=== PATIENT | female | born 1990 | race Caucasian/White ===

== ENCOUNTER 2016-10-07 19:23 | Emergency (ER) | payer OTHER ==
[2016-10-07 19:35] VITALS: BP 113/69; PULSE 70; RESP 16; TEMP 98.2; O2SAT 100
--- NOTE | 2016-10-07 20:32 | ED PDOC ---
HPI: Skin/Bite Injury Time Seen by Provider: 10/07/16 19:49 Chief Complaint (Nursing): Abnormal Skin Integrity Chief Complaint (Provider): Left arm wound evaluation History Per: Patient History/Exam Limitations: no limitations Onset/Duration Of Symptoms: Days Quality Of Symptoms: Itching Severity: Mild Additional Complaint(s): Pt states she cut herself 1 week ago. Pt states that noticed yellow drainage and some surrounding redness the last 2-3 days. No fever.chills. Past Medical History Reviewed: Historical Data, Nursing Documentation, Vital Signs Vital Signs: Last Vital Signs Temp 98.2 F 10/07/16 19:31 Pulse 70 10/07/16 19:31 Resp 16 10/07/16 19:31 BP 113/69 10/07/16 19:31 Pulse Ox 100 10/07/16 19:31 - Medical History PMH: No Chronic Diseases - Surgical History Surgical History: No Surg Hx - Family History Family History: States: No Known Family Hx - Living Arrangements Living Arrangements: With Family - Social History Current smoker - smoking cessation education provided: No Alcohol: Occasional Drugs: Denies - Home Medications Home Medications: Ambulatory Orders Medication Instructions Recorded Cephalexin [Keflex] 500 mg PO BID #20 capsule 10/07/16 - Allergies Allergies/Adverse Reactions: Allergies Allergy/AdvReac Type Severity Reaction Status Date / Time No Known Allergies Allergy Verified 10/07/16 19:31 Review of Systems ROS Statement: Except As Marked, All Systems Reviewed And Found Negative Physical Exam - Reviewed Nursing Documentation Reviewed: Yes Vital Signs Reviewed: Yes - Physical Exam Appears: Positive for: Well, Non-toxic, No Acute Distress Head Exam: Positive for: ATRAUMATIC, NORMAL INSPECTION, NORMOCEPHALIC Skin: Negative for: Normal Color ((+) 4 cm laceration, healing with localized erythema, no drainage ) Eye Exam: Positive for: Normal appearance ENT: Positive for: Normal ENT Inspection Neck: Positive for: Normal, Painless ROM Respiratory: Negative for: Accessory Muscle Use, Respiratory Distress Neurologic/Psych: Positive for: Alert, Oriented - ECG O2 Sat by Pulse Oximetry: 100 Disposition - Clinical Impression Clinical Impression: Infected wound - Patient ED Disposition Is Patient to be Admitted: No Counseled Patient/Family Regarding: Diagnosis, Need For Followup, Rx Given - Disposition Disposition: Routine/Home Disposition Time: 20:08 Condition: GOOD Prescriptions: Cephalexin [Keflex] 500 mg PO BID #20 capsule Instructions: Wound Infection (ED) Forms: [employer] (Somali)
== END 2016-10-07 21:05 | disposition home or self-care (01) ==
LOC: H.ER 19:23
DX: S41.112A Laceration without foreign body of left upper arm, initial encounter (principal); L08.9 Local infection of the skin and subcutaneous tissue, unspecified; W45.8XXA Other foreign body or object entering through skin, initial encounter

== ENCOUNTER 2017-11-03 16:31 | Emergency (ER) | payer OTHER ==
--- NOTE | 2017-11-03 17:28 | ED PDOC ---
HPI: Abdomen <Minda Brand - Last Filed: 11/03/17 19:13> History Per: Patient History/Exam Limitations: no limitations Onset/Duration Of Symptoms: Days, Intermittent Episodes Severity: Moderate Pain Scale Rating Of: 7 Location Of Pain/Discomfort: LLQ Quality Of Discomfort: Aching, Cramping Associated Symptoms: Fever, Nausea, Vomiting. denies: Diarrhea, Constipation Alleviating Factors: None Last Bowel Movement: Today <Blossom Cueto - Last Filed: 11/03/17 19:22> Time Seen by Provider: 11/03/17 17:08 Chief Complaint (Nursing): Abdominal Pain Additional Complaint(s): CC: nausea, vomiting and abd pain HPI: 27 YO female with hx of chlamydia infection 1yr ago (s/p tx) presents to [facility] ED for generalized malaise, n/v and vague abdominal pain. Pt states that her symptoms started last weekend with nausea and multiple episode of emesis, subsequently pt had subjective fevers on off/ had days where she felt mild relief but felt worse on other days. Pain is located in the LLQ, episodic and cramping in nature. Symptoms persisted which lead her to go to an urgent care today, pt was told that she should come to the ER for u/s. Last emesis was before coming to the ED, yellow and food content. Last BM this AM, normal. LMP was 1 week ago. PMD: none PMHx: chlamydia infection SurgHx: lap appy SHx: social ETOH use, denies smoking and illicit drug use FHx: denies Allergies: NKDA Meds: OCPs (Blossom Cueto) Past Medical History <Minda Brand - Last Filed: 11/03/17 19:13> - Medical History PMH: No Chronic Diseases - Surgical History Surgical History: Appendectomy - Family History Family History: States: No Known Family Hx <Blossom Cueto - Last Filed: 11/03/17 19:22> Vital Signs: Last Vital Signs Temp 98.7 F 11/03/17 16:53 Pulse 84 11/03/17 16:53 Resp 18 11/03/17 16:53 BP 113/76 11/03/17 16:53 Pulse Ox 98 11/03/17 17:47 - Home Medications Home Medications: Ambulatory Orders Medication Instructions Recorded Cephalexin [Keflex] 500 mg PO BID #20 capsule 10/07/16 - Allergies Allergies/Adverse Reactions: Allergies Allergy/AdvReac Type Severity Reaction Status Date / Time No Known Allergies Allergy Verified 11/03/17 16:53 Review of Systems Constitutional: Positive for: Fever. Negative for: Chills Cardiovascular: Negative for: Chest Pain, Palpitations Respiratory: Negative for: Cough, Shortness of Breath Gastrointestinal: Positive for: Nausea, Vomiting, Abdominal Pain. Negative for : Diarrhea, Constipation Genitourinary Female: Positive for: Dysuria (last week, none today ). Negative for: Hematuria Skin: Negative for: Rash Neurological: Negative for: Weakness <Blossom Cueto - Last Filed: 11/03/17 19:22> Physical Exam - Physical Exam Appears: Positive for: No Acute Distress Skin: Positive for: Normal Color Cardiovascular/Chest: Positive for: Regular Rate, Rhythm. Negative for: Murmur Respiratory: Positive for: Normal Breath Sounds. Negative for: Crackles, Wheezing Gastrointestinal/Abdominal: Positive for: Soft, Tenderness (to palpation of the LLQ). Negative for: Distended, Guarding, Rebound Back: Positive for: Normal Inspection. Negative for: L CVA Tenderness, R CVA Tenderness Extremity: Positive for: Normal ROM. Negative for: Tenderness, Pedal Edema Neurologic/Psych: Positive for: Alert, Oriented <Blossom Cueto - Last Filed: 11/03/17 19:22> - Laboratory Results Result Diagrams: 11/03/17 18:23 11/03/17 18:23 <Minda Brand - Last Filed: 11/03/17 19:13> - Laboratory Results Result Diagrams: 11/03/17 18:23 11/03/17 18:23 - ECG O2 Sat by Pulse Oximetry: 98 <RomBlossom - Last Filed: 11/03/17 19:22> - Progress ED Course And Treament: 27 YO female with LLQ pain and CMT pos. Torsion vs PID vs ovarian cyst -cbc, cmp -Pelvis U/s -GC/C cx and urine test -UA and udip -upreg -IVF -Toradol 19:10--pt seen and evaluated, states that she feels little better now Blood work reviewed with pt, sig for leukocytosis and UA neg GC/C cultures sent, pending Will tx pt for PID with abx, Rocephin and 1x PO dose of doxy Pt endorsed to Dr. Franklin (Blossom Cueto) Medical Decision Making <Minda Brand - Last Filed: 11/03/17 19:13> <Blossom Cueto - Last Filed: 11/03/17 19:22> Medical Decision Making: A&P: Vaginal discomfort Workup done with resident. On re-evaluation, labs reveal leukocytosis. Patient with severe pain on pelvic exam with CMT and left adnexal tenderness. Patient to be given IV Doxycycline and IM Rocephin to cover PID. Patient pending pelvic US to r/o Torsion vs. cyst. 1899 Patient signed out to Dr. Franklin pending US and reassessment. Scribe Attestation: Documented by Emily Nj, acting as a scribe for Minda Brand MD Provider Scribe Attestation: All medical record entries made by the Scribe were at my direction and personally dictated by me. I have reviewed the chart and agree that the record accurately reflects my personal performance of the history, physical exam, medical decision making, and the department course for this patient. I have also personally directed, reviewed, and agree with the discharge instructions and disposition. (Minda Brand) Disposition - Patient ED Disposition Is Patient to be Admitted: Transfer of Care - Disposition Disposition: Transfer of Care Disposition Time: 19:00 <Minda Brand - Last Filed: 11/03/17 19:13> <Blossom Cueto - Last Filed: 11/03/17 19:22> - Clinical Impression Clinical Impression: Abdominal pain - Disposition Condition: STABLE Forms: [employer] (Serbian)
[2017-11-03] MEDS ORDERED: Sodium Chloride 0.9% 1,000 ML IV STA (17:43)
[2017-11-03 18:12] LABS: SQUAMOUS EPITHIAL 1 /hpf (0-5); URINE BACTERIA RARE (<OCC); URINE BILIRUBIN NEGATIVE (NEGATIVE); URINE BLOOD NEGATIVE (NEGATIVE); URINE CLARITY CLEAR (Clear); URINE COLOR YELLOW (YELLOW); URINE GLUCOSE (UA) NEG (Normal); URINE LEUKOCYTE ESTERASE NEG Leu/uL (Negative); URINE PROTEIN NEGATIVE (NEGATIVE); URINE UROBILINOGEN 0.2-1.0 mg/dL (0.2-1.0)
[2017-11-03 18:26] LABS: BASO % 0.2 % (0.0-2.0); EOS % 0.1 % (0.0-4.0); HEMOGLOBIN 13.4 g/dL (12.0-16.0); LYMPH # 1.2 K/uL (1.0-4.3); LYMPH % 9.3 % (20.0-40.0); MEAN CELL VOLUME 87.9 fl (81.0-99.0); MEAN CORPUSCULAR HGB CONC 34.1 g/dL (33.0-37.0); MEAN PLATELET VOLUME 7.4 fl (7.2-11.7); MONO # 0.7 K/uL (0.0-0.8); MONO % 5.2 % (0.0-10.0); NEUT # 10.7 K/uL (1.8-7.0); NEUT % 85.2 % (50.0-75.0); PLATELET COUNT 285 K/uL (130-400); RBC 4.45 Mil/uL (3.80-5.20); RED CELL DISTRIBUTION WIDTH 12.2 % (11.5-14.5); WHITE BLOOD COUNT 12.6 K/uL (4.8-10.8)
[2017-11-03 18:35] LABS: BLOOD UREA NITROGEN 7 mg/dl (7-17); CALCIUM 9.3 mg/dL (8.4-10.2); GFR NON-AFRICAN AMERICAN > 60
[2017-11-03] MEDS ORDERED: cefTRIAXone (Rocephin) 250 mg Inj IM ONE (19:17)
--- NOTE | 2017-11-03 19:37 | ED PDOC ---
- Laboratory Results Result Diagrams: 11/03/17 18:23 11/03/17 18:23 - ECG O2 Sat by Pulse Oximetry: 98 (RA) Pulse Ox Interpretation: Normal Medical Decision Making Medical Decision Making: Time: 1899 Patient signed out to me by Dr. Brand pending US studies. Time: 2022 US Pelvis/Transvag FINDINGS: Uterus/cervix: Unremarkable. No myometrial mass. Endometrial stripe measures 2 mm. Right ovary: Unremarkable. No mass. Normal blood flow. Left ovary: Unremarkable. No mass. Normal blood flow. Free fluid: No free fluid. IMPRESSION: Normal pelvic ultrasound. 2099 Patient is feeling much better. Advised of results. Advised her to followup with [facility] as soon as possible. Will d/c home. Scribe Attestation: Documented by Emily Nj, acting as a scribe for Basilio Franklin MD. Provider Scribe Attestation: All medical record entries made by the Scribe were at my direction and personally dictated by me. I have reviewed the chart and agree that the record accurately reflects my personal performance of the history, physical exam, medical decision making, and the department course for this patient. I have also personally directed, reviewed, and agree with the discharge instructions and disposition. Disposition - Clinical Impression Clinical Impression: Abdominal pain, Pelvic inflammatory disease - POA Present On Arrival: None - Disposition [facility] Disposition: Routine/Home Disposition Time: 21:00 Condition: STABLE Prescriptions: Doxycycline Monohydrate 100 mg PO BID 7 Days #14 tablet Ondansetron ODT [Zofran ODT] 4 mg PO Q8 PRN #12 odt PRN Reason: Nausea/Vomiting Instructions: Pelvic Inflammatory Disease Forms: [employer] (Frisian)
[2017-11-03 19:52] LABS: BANDS 3 % (0-2); HYPOCHROMIC SLIGHT; LYMPHOCYTE 8 % (20-50); MONOCYTE 9 % (0-10); NEUTROPHIL 80 % (42-75); PLATELET ESTIMATE NORMAL (NORMAL); TOTAL CELLS COUNTED 100
[2017-11-03] MEDS ORDERED: cefTRIAXone (Rocephin) 250 mg Inj ONE (20:25)
[2017-11-03 21:03] VITALS: BP 112/70; PULSE 82; RESP 16; TEMP 99.6
[2017-11-04 02:32] VITALS: O2SAT 98
--- NOTE | 2017-11-04 14:08 | US ---
Date of service: 11/03/2017 HISTORY: LLQ pain COMPARISON: None available. TECHNIQUE: Transvaginal pelvic ultrasonography was performed with longitudinal and transverse projections submitted for interpretation. Spectral Doppler analysis was also utilized. FINDINGS: UTERUS: Measures approximately 6.1 x 3.0 x 4.3 cm. Normal in size and appearance. No fibroid or other mass lesion seen. ENDOMETRIUM: Measures 2.1 mm in diameter. Unremarkable. CERVIX: No cervical abnormality identified. RIGHT OVARY: Measures 3.0 x 2.3 x 3.4 cm. No solid mass. Normal flow. LEFT OVARY: Measures 3.3 x 2.1 x 3.3 cm. No solid mass. Normal flow. FREE FLUID: No significant free fluid noted. OTHER FINDINGS: None. IMPRESSION: Unremarkable pelvic ultrasound. Concordant preliminary report from [facility], 11/03/2017.
== END 2017-11-03 21:50 | disposition home or self-care (01) ==
LOC: H.ER 16:31
DX: N73.9 Female pelvic inflammatory disease, unspecified (principal); D72.829 Elevated white blood cell count, unspecified
CPT/HCPCS: 76830; 80048; 81003; 81025; 85025; 87081; 87491; 87591; 96372; 96374; 96375; 96376; 99285; J0696; J1885; J2405; J7030